=== PATIENT | female | born 1960 | race Caucasian/White ===

== ENCOUNTER 2021-12-11 18:29 | Inpatient (IN) | payer BC, SELFPAY ==
--- NOTE | 2021-12-11 18:43 | ECG_ITS ---
[facility] Test Date: 2021-12-11 Pat Name: Erica Greco Department: Room: 275 Gender: Female Applications Consultant: : 1960 Requested By: Danny Johns Order Number: [id number] Julius MD: Dean Lucas M.D. Measurements Intervals [place] Rate: 96 P: 44 MD: 129 QRS: 8 QRSD: 96 T: 46 QT: 358 QTc: 455 Interpretive Statements SINUS RHYTHM NONSPECIFIC T-WAVE ABNORMALITY No previous ECG available for comparison Electronically Signed On 12-12-2021 23:39:21 CDT by Dean Lucas M.D. [id number]
--- NOTE | 2021-12-11 18:55 | PC.NURSE ---
received into room 275 via ems from [facility] at 1825.pt is alert and awake and oriented x 4.denies pain.st on monitor.oriented to room environment.dr renae notified of arrival.
[2021-12-11 19:54] VITALS: BMI 30.5
[2021-12-11 20:00] VITALS: BP 109/61; PULSE 122; RESP 18; TEMP 38.2; O2SAT 95
[2021-12-11] MEDS: famotidine 20 mg/2 mL INJ IVP (20:12)
[2021-12-11] MEDS: sodium chloride 0.9% 1,000 ML 75 ML IV (20:12)
[2021-12-11] MEDS: acetaminophen 325 mg Tablet 650 MG PO (20:14)
--- NOTE | 2021-12-11 20:14 | USCV_ITS ---
Erica Greco Age: 61 Gender: F : 1960 Exam Date: 12/11/2021 22:08 Ordering Phys: Danny Johns MD Technologist: DHAVAL [place] [facility] [place]: c/o eval for CHF. History of reduced EF following chemo for multiple myeloma summer 2020. BP: 109 / 61 HR: 97 Rhythm: Sinus Technical Quality: Adequate MEASUREMENTS (Male / Female) Normal Values 2D ECHO LV Diastolic Diameter PLAX 4.1 cm 4.2 - 5.9 / 3.9 - 5.3 cm LV Systolic Diameter PLAX 2.8 cm IVS Diastolic Thickness 1.7 cm 0.6 - 1.0 / 0.6 - 0.9 cm IVS Systolic Thickness 1.9 cm LVPW Diastolic Thickness 1.4 cm 0.6 - 1.0 / 0.6 - 0.9 cm LVPW Systolic Thickness 1.8 cm LVOT Diameter 1.9 cm LV Ejection Fraction 2D Teich 61.0 % LV Ejection Fraction MOD 2C 54.5 % LV Ejection Fraction 2C AL 55.2 % LA Diameter 3.5 cm LA Width 3.3 cm LA Height 4.5 cm RA Width 2.9 cm RA Height 3.9 cm Aorta at Sinotubular Diameter 2.9 cm IVC Diameter 1.3 cm M-MODE Aortic Annulus Diameter 3.0 cm LA Ao Ratio MM 1.1 MV E Point Septal Separation 0.4 cm DOPPLER AV Peak Velocity 106.0 cm/s LVOT Peak Velocity 83.0 cm/s AV Area Cont Eq vti 2.1 cm squared AV Area Cont Eq pk 2.2 cm squared MV Peak Velocity 79.0 cm/s MV Area PHT 3.9 cm squared Mitral E to A Ratio 0.7 MV E' Velocity 29.5 cm/s Mitral E to MV E' Ratio 10.0 Mitral E to LV E' Lateral Ratio 7.5 Mitral E to LV E' Septal Ratio 14.9 TR Peak Velocity 236.2 cm/s TR Peak Gradient 22.3 mmHg TV Peak E Velocity 38.0 cm/s Right Atrial Pressure 5.0 mmHg Pulmonary Artery Systolic Pressu 27.3 mmHg PV Peak Velocity 84.0 cm/s FINDINGS Left Ventricle Normal LV size with borderline low ejection fraction 50 to 55%.mild left ventricular hypertrophy. Mild diffuse hypokinesia of the septum.Grade I/IV diastolic dysfunction (abnormal relaxation filling pattern), normal to mildly elevated filling pressures. Right Ventricle The right ventricle is normal in size and function. Right Atrium The right atrium is normal in size. Left Atrium The left atrium is normal in size. Mitral Valve Thickened mitral valve. Aortic Valve No gross abnormalities noted Tricuspid Valve Trace tricuspid valve regurgitation. Pulmonic Valve Trace pulmonary valve regurgitation. Pericardium No pericardial effusion. Aorta Normal aortic annulus size. IVC The inferior vena cava pulmonary and hepatic veins appear normal. CONCLUSIONS Normal LV size with borderline low ejection fraction 50 to 55%.mild left ventricular hypertrophy. Mild diffuse hypokinesia of the septum. Type I diastolic dysfunction. Thickened mitral valve. Trace of tricuspid and pulmonic valve regurgitation. There is no pericardial effusion. There are no intracardiac masses. No similar previous studies are available for comparison Dr Dean Lucas MD [facility] (Electronically Signed) Final Date: 12 December 2021 07:58 S
[2021-12-11 20:27] LABS: Hematocrit 33.8 % (37.0-47.0); Hemoglobin 11.3 g/dL (11.5-15.3); Mean Corpuscular HGB Conc 33.4 g/dL (30.0-36.0); Mean Corpuscular Hemoglobin 32.1 pg (28.0-34.0); Mean Platelet Volume 12.2 fL (7.4-10.4); Red Blood Count 3.52 10^6/uL (4.1-5.3); Red Cell Distribution Width 14.1 % (12.1-15.1)
[2021-12-11 20:33] LABS: White Blood Count 0.9 10^3/uL (4.0-10.0)
[2021-12-11 20:34] LABS: Platelet Count 27 10^3/cmm (130-400); Slide Review Slide Review Perform
[2021-12-11 20:46] LABS: Lactic Sepsis W/Reflex 1.1 mmol/L (0.5-2.2)
[2021-12-11 20:55] LABS: NT Pro B Type Natriuretic Pept 242 pg/mL (0-125); Procalcitonin 2.59 ng/mL (0-0.5)
[2021-12-11 20:57] LABS: Glucose Point of Care 272 mg/dL (70-110)
[2021-12-11 20:58] LABS: Magnesium 1.8 mg/dL (1.7-2.3); Thyroid Stimulating Hormone 0.93 uIU/mL (0.27-4.20)
[2021-12-11 21:03] LABS: Absolute Segmented Neutrophil 0.7 10/cmm (1.6-7.1); Eosinophils 2 %; Lymphocytes 6 %; Lymphocytes Absolute 0.2 10^3/cmm (1.2-3.4); Platelet Estimate Decreased (Normal); Segmented Neutrophils 73 %; Total Cells Counted 100 (0-100)
[2021-12-11 21:05] LABS: Absolute Neutrophil 0.7 10^3/cmm (1.4-6.5)
[2021-12-11 21:06] LABS: Alanine Aminotransferase 44 U/L (0-33); Albumin Level 3.6 g/dL (3.5-5.2); Alkaline Phosphatase 54 IU/L (35-105); Anion Gap 19.3 (5-19); Aspartate Amino Transferase 21 U/L (0-32); Blood Urea Nitrogen 17 mg/dL (8-23); Calcium 8.3 mg/dL (8.5-10.5); Carbon Dioxide 19 mmol/L (22-29); Chloride 95 mmol/L (98-107); Globulin 2.7 g/dL (1.3-4.6); Glomerular Filtration Rate 63.4 mL/min (90-130); Glucose 220 mg/dL (65-115); Iron 26 ug/dL (37-145); Osmolality Calculated 278 mOsm/kg (285-295); Percent Saturation 13.9 % (20-50); Potassium 3.3 mmol/L (3.5-5.1); Sodium 130 mmol/L (136-145); Total Bilirubin 0.5 mg/dL (0.15-1.2); Total Iron Binding Capacity 186 mcg/dl; Total Protein 6.3 g/dL (6.6-8.7); Unsaturated Iron Binding 160 ug/dL (112-347)
[2021-12-11 21:22] VITALS: O2SAT 97
[2021-12-11 21:23] VITALS: PULSE 118; O2SAT 97
[2021-12-11 21:25] LABS: Folate Level > 20.0 ng/mL (4.8-37.3)
[2021-12-11] MEDS: insulin lispro 100 unit/1 mL SUBCUT (21:32)
[2021-12-11] MEDS: metoprolol tartrate 50 mg Tablet PO (21:32)
[2021-12-11] MEDS: gabapentin 100 mg Capsule PO (21:33)
[2021-12-11] MEDS: allopurinol 100 mg Tablet PO (21:33)
[2021-12-11 21:49] LABS: Add Urine Microscopic? NO; Charge for UA Resulting for Rev
[2021-12-11 22:07] LABS: Bilirubin Urine Neg (Negative); Blood Urine Neg (Negative); Glucose Urine UA 4+ (Normal); Ketones Urine 1+ (Negative); Leukocyte Esterase Urine Negative (Negative); Nitrate Urine Negative (Negative); Protein Urine Neg (Negative); Specific Gravity, Urine 1.015 (1.005-1.030); Urine Appearance Clear (CLEAR); Urine Color Yellow (Yellow); Urobilinogen Urine Norm (Negative); pH Urine 5 (5-7)
[2021-12-11 22:10] VITALS: PULSE 110
[2021-12-11 22:15] LABS: SARS Covid-2 Antigen Negative (Negative)
[2021-12-12] VITALS (13 sets, daily range): BP systolic 76–100; BP diastolic 46–71; PULSE 80–124; RESP 16–18; TEMP 36.4–39.1; O2SAT 92–98
[2021-12-12] MEDS: piperacillin-tazobactam 3.375 GM in sodium chloride 0.9% (plus) 50 ML IV ×3 (00:21→17:46)
[2021-12-12] MEDS: cyclobenzaprine 10 mg Tablet PO ×2 (00:21→20:08)
--- NOTE | 2021-12-12 01:41 | XRR_ITS ---
PROCEDURE INFORMATION: Exam: XR Chest Exam date and time: 12/12/2021 2:21 AM Age: 61 years old Clinical indication: Fever; Additional info: Fever and neutropenia, evalute for pneumonia TECHNIQUE: Imaging protocol: Radiologic exam of the chest. Views: 1 view. COMPARISON: No relevant prior studies available. FINDINGS: Tubes, catheters and devices: Right subclavian Port-A-Cath is seen with tip overlying the cavoatrial junction. Lungs: There are normal lung volumes without interstitial or airspace opacities. Pleural spaces: There are no pleural effusions or pneumothorax. Heart/Mediastinum: The heart size is normal. The pulmonary vasculature is normal. There is a mildly tortuous thoracic aorta. The trachea is in the midline. Bones/joints: Medium-sized degenerative osteophytes and moderate degenerative disc disease changes are seen in the mid to lower thoracic spine. Mild bilateral shoulder degenerative changes are seen. There is generalized osteopenia. Soft tissues: Multiple external densities are seen overlying the chest, limiting assessment. XR/XR chest 1V portable [id number] IMPRESSION: No AP view chest radiographic evidence of acute cardiopulmonary disease.
--- NOTE | 2021-12-12 01:44 | PM.HP ---
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 daily for 21 days) + Darzalex faspro (daratumumab and hyaluronidase) once a month with last dose 1 week ago presented to [facility] with complaints of fever. Patient reports she has been having fever on and off for the past week ranging up to 101 Fahrenheit at home. She denies any cough dyspnea chest pain palpitations or sputum production. She reports mild pain in the right lower quadrant which is new over the past week. Also has 3-4 episodes of diarrhea which appears to be more chronic and per patient appears related to magnesium supplements. No nausea or diarrhea. No blood in stools. Denies any complains of dysuria. No rashes anywhere on body. No recent sick contacts. Past medical history is notable for multiple myeloma, congestive heart failure, cardiomyopathy which was precipitated by induction chemotherapy 1 year ago. At the time of initial diagnosis her EF was 30%, she has remained on Entresto for about a year, most recent EF was 50% per verbal report. 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 Denies any joint pain or arthralgias at this time. No odynophagia sore throat or URI symptoms. Labs today are notable for neutropenia, thrombocytopenia, and electrolyte disturbances. Patient denies any past history of febrile neutropenia. She normally does not need to take Neupogen after her chemo. She is on Eliquis 2.5 mg twice daily which has recently been discontinued. Review of Systems General: Reports: 10 or more systems reviewed and unremarkable except in HPI and below Const: Denies: fever(s), chills or body aches Eyes: Denies: change in vision, blurry vision or photophobia ENMT: Reports: hoarseness; Denies: throat pain, enlarged tonsils, odynophagia or nasal congestion Card: Denies: chest pain, palpitations, irregular heart rhythm, edema, swelling of feet/ankles, lightheadedness, pre-syncope, dyspnea on exertion or orthopnea Resp: Denies: dyspnea, productive cough, non-productive cough, wheezing, stridor, pain on inspiration, change in phlegm color, hemoptysis or chest congestion GI: Denies: abdominal pain, nausea, vomiting, hematemesis, coffee ground emesis, dysphagia, heartburn, diarrhea, constipation, GI cramping, change in stool character, hematochezia or melena : Denies: flank pain, difficulty voiding, dysuria, urinary frequency, urinary urgency, urinary hesitancy or hematuria Musc: Denies: neck pain, back pain, extremity pain, joint swelling, joint warmth or deformity Neuro: Denies: headache(s), numbness in extremities, weakness in extremities, sensory changes, difficulty walking, frequent falls, dizziness, vertigo, behavioral changes, Slurred speech present or seizure-like activity Psych: Denies: anxiety, depression, suicidal ideation or homicidal ideation Endo: Denies: polyuria, polydipsia, tired all the time, cold intolerance or hot flashes Mario/Lymph: Denies: easy bruising or easy bleeding Medications/Allergies Home Medications Medication Instructions Recorded Confirmed Last Taken Type acyclovir 400 mg tablet 400 mg PO BID 12/11/21 12/11/21 12/11/21 08:00 History allopurinol 100 mg tablet 100 mg PO BEDTIME 12/11/21 12/11/21 12/10/21 21:00 History coQ10 (ubiquinol) 100 mg capsule 100 mg PO DAILY 12/11/21 12/11/21 Unknown History cyclobenzaprine 10 mg tablet 30 mg PO BEDTIME 12/11/21 12/11/21 12/10/21 21:00 History dapagliflozin 10 mg tablet 10 mg PO QAM 12/11/21 12/11/21 12/11/21 08:00 History dulaglutide 0.75 mg/0.5 mL See Rx Instructions .ROUTE .COMPLEX 12/11/21 12/11/21 12/07/21 08:00 History subcutaneous pen injector (Trulicity) gabapentin 100 mg capsule 100 mg PO BEDTIME 12/11/21 12/11/21 12/10/21 21:00 History hydrocodone 5 mg-acetaminophen 325 1 tab PO PRN PRN 12/11/21 12/11/21 Unknown History mg tablet metformin 750 mg tablet,extended 750 mg PO BID 12/11/21 12/11/21 12/11/21 08:00 History release 24 hr metoprolol tartrate 50 mg tablet 50 mg PO BEDTIME 12/11/21 12/11/21 12/10/21 21:00 History sacubitril 97 mg-valsartan 103 mg 1 tab PO BID 12/11/21 12/11/21 12/11/21 08:00 History tablet (Entresto) Allergies Allergy/AdvReac Type Severity Reaction Status Date / Time influenza virus vaccine qs Allergy ALGY-Wheezi Verified 12/11/21 19:56 2020- (6 mos and up) ng [From Fluarix Quad 2754-3786 (PF)] metformin [From Janumet] Allergy ADR-Gastrointestinal Verified 12/11/21 19:56 Upset sitagliptin [From Janumet] Allergy ADR-Gastrointestinal Verified 12/11/21 19:56 Upset PFSH Acute PFSH: Medical History (Updated 12/12/21 @ 02:20 by Ekta Mccloud MD) HTN (hypertension) Multiple myeloma Type 2 diabetes mellitus Surgical History (Updated 12/12/21 @ 02:17 by Ekta Mccloud MD) History of auto stem cell transplant Vitals/I&O/Wt Last Vital Signs Temp 99.1 F 12/12/21 00:00 Pulse 88 12/12/21 00:00 Resp 17 12/12/21 00:00 BP 85/53 12/12/21 00:00 Pulse Ox 96 12/12/21 00:00 12/11/21 12/11/21 12/12/21 14:59 22:59 06:59 Intake Total 240 / 240 250 / 490 Output Total 200 / 200 Balance 40 / 40 250 / 290 Weight last 48 hrs Weight 80.785 kg Physical Exam Narrative: GEN: Awake, alert and oriented, no acute distress CVS: S1S2 N RS: CTA B/L all areas Abd: Soft, nt/nd , bs+ FAMILY LITERACY COORDINATOR: no focal neuro deficits EXT: no rash, clubbing or cyanosis Data : 12/11/21 20:00 12/11/21 20:00 Micro: Microbiology 12/11/21 21:40 Legionella Urinary Antigen - Final Urine,Voided 12/11/21 20:12 Blood Culture - Preliminary Blood SPECIMEN COLLECTED 12/11/21 20:00 Blood Culture - Preliminary Blood SPECIMEN COLLECTED A&P Assessment and plan (1) Neutropenic fever: Presenting today with fever and neutropenia, source under evaluation. Patient denies any respiratory symptoms at this present time. She does report a right lower quadrant pain along with 4-[address] episodes of diarrhea[address] Check CT of the abdomen pelvis to evaluate for typhlitis Empiric antibiotic treatment with piperacillin tazobactam and vancomycin Check chest x-ray, UA, blood culture, tick panel, COVID PCR. Mildly elevated AST, check hepatitis serology Continue acyclovir prophylaxis. Gentle IVF hydration with NS @ 75cc/hr Status: Acute (2) Pancytopenia: likely as result of recent daratumumab therapy. Monitor for now, will likely need neupogen if persistently neutropenic Reverse isolation precautions recently taken off eliquis due to thrombocytopenia. 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
[2021-12-12 02:59] LABS: Basophils % 1.1 %; Eosinophils % 2.2 %; Hematocrit 29.1 % (37.0-47.0); Hemoglobin 10.2 g/dL (11.5-15.3); Lymphocytes # 0.1 10^3/uL (0.8-4.8); Lymphocytes % 14.3 %; Mean Corpuscular HGB Conc 35.1 g/dL (30.0-36.0); Mean Corpuscular Hemoglobin 32.6 pg (28.0-34.0); Monocytes # 0.1 10^3/uL (0.2-0.9); Monocytes % 14.3 %; Neutrophils % 68.1 %; Nucleated Red Blood Cells % 0 %; Red Blood Count 3.13 10^6/uL (4.1-5.3)
[2021-12-12 03:22] LABS: Alanine Aminotransferase 37 U/L (0-33); Albumin Level 3.2 g/dL (3.5-5.2); Alkaline Phosphatase 47 IU/L (35-105); Anion Gap 13.2 (5-19); Aspartate Amino Transferase 17 U/L (0-32); Blood Urea Nitrogen 22 mg/dL (8-23); Calcium 8.1 mg/dL (8.5-10.5); Carbon Dioxide 23 mmol/L (22-29); Chloride 103 mmol/L (98-107); Chol HDL Ratio 6.33 mg/dL (0.0-4.40); Cholesterol 133 mg/dL (0-200); Globulin 2.7 g/dL (1.3-4.6); Glomerular Filtration Rate 56.2 mL/min (90-130); Glucose 120 mg/dL (65-115); HDL Cholesterol 21 mg/dL (60-100); LDL Cholesterol Calculated 47 mg/dL (50-129); Osmolality Calculated 287 mOsm/kg (285-295); Phosphorus 3.3 mg/dL (2.5-4.5); Potassium 3.2 mmol/L (3.5-5.1); Sodium 136 mmol/L (136-145); Total Bilirubin 0.4 mg/dL (0.15-1.2); Total Protein 5.9 g/dL (6.6-8.7); Triglycerides 324 mg/dL (0-150); VLDL Cholestrol Calculation 65 mg/dL (0-30)
[2021-12-12 03:34] LABS: Neutrophils # 0.62 10^3/uL (1.8-7.7); Platelet Count 27 10^3/cmm (130-400); Slide Review Slide Review Perform; White Blood Count 0.9 10^3/uL (4.0-10.0)
[2021-12-12 03:36] LABS: Estmated Average Glucose 137; Hemoglobin A1C 6.4 % (4.0-6.0)
[2021-12-12 04:15] LABS: Hepatitis A Antibody IgM Non-Reactive (Nonreactive); Hepatitis B Surface AB 418.6 (11.5-1000); Hepatitis B Surface Antigen Non-Reactive (Nonreactive); Hepatitis C Virus Antibody Non-Reactive (Nonreactive)
[2021-12-12 05:00] LABS: Hepatitis B Core AB, Total Equivocal (Nonreactive)
[2021-12-12] MEDS: famotidine 20 mg/2 mL INJ IVP ×2 (05:23→17:48)
[2021-12-12 07:48] LABS: Glucose Point of Care 123 mg/dL (70-110)
--- NOTE | 2021-12-12 07:52 | CT_ITS ---
WS: [id number] CT CHEST, ABDOMEN, AND PELVIS TECHNIQUE: Contrast-enhanced CT of the chest, abdomen, and pelvis with coronal and sagittal reformatt ed images. CLINICAL INFORMATION: neutropenic fever, mm COMPARISON: None. DLP: 1579.[address] scans at [facility] use at least one of these dose optimization techniques: automated e xposure control; mA and/or kV adjustment per patient size (includes targeted exams where dose is matc hed to clinical indication); or iterative reconstruction. CT CHEST: Both lungs are well aerated. No acute pulmonary infiltrates. No focal pneumonia or pleural fluid. No suspicious pulmonary parenchymal opacities. Normal caliber thoracic aorta. Coronary calcification. No mediastinal or hilar lymphadenopathy. No ax illary lymphadenopathy. Moderate thoracic kyphosis with chronic compression fractures in the mid thor acic spine one with vertebroplasty changes. Anterior wedging with hypertrophic changes. Ankylosis in the mid and lower thoracic spine. CT ABDOMEN AND PELVIS: Mild diffuse fatty infiltration of the liver. Mild hepatomegaly. Enlarged RIGHT hepatic lobe. Mild sp lenomegaly. Normal GE junction. Normal portal vein and splenic vein. Normal pancreatic parenchymal en hancement. Normal caliber upper abdominal aorta. Celiac and SMA are patent. Adrenal glands are normal . Normal renal parenchymal enhancement. No hydronephrosis. Bilateral renal cysts. No para-aortic lymphadenopathy. Heterogeneous lobulated fibroid uterus. Uterus appears retroverted an d retroflexed. Heterogeneous presumed fibroid measures 4.8 x 4.1 cm in the fundus. This can be follow ed up with ultrasound. This results in mass effect on the adjacent sigmoid colon. Otherwise normal si gmoid colon. No evidence of high-grade small or large bowel obstruction. Fat-containing tiny umbilical hernia. Evidence of prior periumbilical hernia repair. No herniated bow el. Extensive hypertrophic changes lumbar spine. Innumerable tiny lytic lesions throughout the visualized bony structures compatible with history of multiple myeloma more prominent in the pelvis and sacrum. . CT/CT chest abd pel w con* IMPRESSION: 1. No evidence of drainable abscess or fluid collection to account for neutrop enic fever. 2. Lungs are well aerated. No acute pulmonary infiltrates. 3. No focal pneumonia or pleural fluid. 4. Mild hepatomegaly and splenomegaly. Diffuse fatty filtration liver. 5. Previous umbilical and RIGHT periumbilical hernia repair. Incidental tiny f at containing hernias but no herniated bowel. 6. Retroverted and retroflexed uterus with heterogeneous enhancing fundal mass presumably fibroid measuring 4.8 x 4.1 cm. This impinges the adjacent sigmoid colon. This can be further evaluated with ultrasound. 7. Multiple innumerable tiny lytic lesions throughout the visualized bony stru ctures more prominent in the bony pelvis and sacrum extending into the proximal femurs and femoral heads compatible with history of multiple myeloma. 8. Thoracic kyphosis with chronic compression fractures T5 and T6 with vertebr a plana configuration at T5 and prior vertebroplasty changes at T6.
[2021-12-12] MEDS: acyclovir 400 mg Tablet PO ×2 (09:24→17:47)
[2021-12-12] MEDS: sodium chloride 0.9% 1,000 ML 75 ML IV ×2 (10:10→23:24)
[2021-12-12 11:53] LABS: Glucose Point of Care 154 mg/dL (70-110)
[2021-12-12] MEDS: insulin lispro 100 unit/1 mL SUBCUT ×2 (12:31→20:58)
[2021-12-12] MEDS: iohexol 350 mg/mL 100 mL Btl IV (12:32)
--- NOTE | 2021-12-12 13:53 | P.PN_ITS ---
Subjective Subjective: No acute events overnight. Today morning on examination patient sitting up in chair. Denies any nausea, vomiting, headache. Complaining of slight pain in his right lower abdomen. Denies of having any dysuria. Complaining of diarrhea but he states is most likely secondary to lactulose which she was prescribed few weeks ago. She states she continues to have loose bowel movements. T-max since admission 100.8 Fahrenheit. Vitals/I&O/Wt Last Vital Signs Temp 100.7 F H 12/12/21 11:27 Pulse 112 H 12/12/21 11:27 Resp 17 12/12/21 11:27 BP 85/50 12/12/21 11:27 Pulse Ox 96 12/12/21 11:27 12/11/21 12/12/21 12/12/21 22:59 06:59 14:59 Intake Total 240 / 240 540 / 780 1480 / 1480 Output Total 200 / 200 360 / 560 300 / 300 Balance 40 / 40 180 / 220 1180 / 1180 Weight last 48 hrs Weight 80.785 kg Physical Exam Narrative: General: No acute distress, AO x3 HEENT: PERRLA, pupils bilaterally equal and reactive Chest: Normal vesicular breath sounds, no added sounds, equal good air entry bilaterally CVS: S1-S2 regular, no murmurs, no tachycardia, no gallops, no rubs Abdomen: Soft, mild tenderness in right lower quadrant , no organomegaly, bowel sounds present Neuro: No focal deficits, no facial deformity, AO x3, power 5/5 in all limbs Data : 12/12/21 02:21 12/12/21 02:21 Micro: Microbiology 12/11/21 18:18 Bacterial Antigens - Final Urine Kidney 12/11/21 21:40 Legionella Urinary Antigen - Final Urine,Voided 12/11/21 20:12 Blood Culture - Preliminary Blood SPECIMEN COLLECTED 12/11/21 20:00 Blood Culture - Preliminary Blood SPECIMEN COLLECTED A&P Assessment and plan (1) Sepsis: Present on admission. Ruled in by tachycardia, fever, leukopenia and low blood pressures. Target organ damage?cardiac. Keep mean artery pressure over 65. Normal saline at 75 cc/h. Status: Acute Qualifiers: Sepsis type: sepsis due to unspecified organism Sepsis acute organ dysfunction status: with acute organ dysfunction Severe sepsis acute organ dysfunction type: unspecified Severe sepsis shock status: without septic shock Qualified Code(s): A41.9 - Sepsis, unspecified organism; R65.20 - Severe sepsis without septic shock (2) Neutropenic fever: Most likely secondary to chemotherapy for multiple myeloma. Continue with vancomycin and Zosyn. Will dose antibiotics as per creatinine clearance. Follow-up blood culture, tick panel, COVID-19 PCR, urine culture, respiratory viral panel Will de-escalate antibiotics as per culture results. If MRSA negative can discontinue vancomycin. For now we will continue antibiotics for at least 72 hours till blood cultures were monitored. Continue with IV hydration with normal saline at 75 cc/h. Awaiting CT chest abdomen pelvis with contrast. Check stool studies. Continuing home dose of acyclovir at 40 mg twice daily. Status: Acute (3) Pancytopenia: likely as result of recent daratumumab therapy. Patient will most likely need Neupogen. Will confirm with her outpatient oncologist. Continue to monitor ANC daily for now. If persists will consult ID. Recently taken off eliquis due to thrombocytopenia. Status: Acute (4) Cardiomyopathy: No signs of decompensation. Echocardiogram shows an EF of 55 to 60%, grade 1 diastolic dysfunction, diffuse hypokinesia of septum. Strict input output charting. Status: Acute (5) Type 2 diabetes mellitus: Insulin sliding scale at moderate dose protocol. Check A1c. Patient is requesting regular diet rather than carb consistent. Status: Acute (6) Multiple myeloma: Follows up with oncology team at [facility]. Post auto stem transplant 1 year ago. Currently on chemotherapy with Revlimid daily for 21 days, Darzalex Faspro once a month with last dose 1 week ago. Status: Acute Plan Hypotension: Most likely secondary to possible sepsis. Hold off on Entresto. Decrease dose of metoprolol to 25 mg at bedtime. Keep mean artery pressure over 65 and less than 90 mmHg. Analgesia: Tylenol as needed Glycemic control: Moderate protocol insulin sliding scale Nutrition: Regular diet CODE STATUS: Full code PUD prophylaxis: Protonix DVT prophylaxis: SCDs, hold off on medical prophylaxis given thrombocytopenia Discharge planning: Discharge back home once patient is medically stable wound cultures remain negative for at least 72 hours. Continue care at [facility] with reverse isolation in place. Attestations Medical Necessity Statement*: Patient for management of severe pancytopenia, thrombocytopenia, neutropenic fever. Time Spent in Patient Care: Greater than 35 minutes Coding Level of Care Code Acute Artist Scientific for [facility] Fwd Diagnoses Neutropenic fever D70.9; R50.81 Pancytopenia D61.818 Cardiomyopathy I42.9 Type 2 diabetes mellitus E11.9 Multiple myeloma C90.00 Sepsis A41.9; R65.20 Sepsis type: sepsis due to unspecified organism Sepsis acute organ dysfunction status: with acute organ dysfunction Severe sepsis acute organ dysfunction type: unspecified Severe sepsis shock status: without septic shock
[2021-12-12] MEDS: acetaminophen 325 mg Tablet 650 MG PO (15:38)
[2021-12-12] MEDS: acetaminophen 1,000 MG/100 ML PIGGYBACK 400 MG IV (16:54)
[2021-12-12 17:05] LABS: Glucose Point of Care 118 mg/dL (70-110)
[2021-12-12] MEDS: allopurinol 100 mg Tablet PO (20:07)
[2021-12-12] MEDS: metoprolol tartrate 50 mg Tablet 25 MG PO (20:07)
[2021-12-12] MEDS: gabapentin 100 mg Capsule PO (20:07)
--- NOTE | 2021-12-12 20:24 | PC.NURSE ---
Patient moved to 261 with telemetry. Report given to MELVIN Gil.
[2021-12-12 21:06] LABS: Glucose Point of Care 191 mg/dL (70-110)
[2021-12-13] VITALS (10 sets, daily range): BP systolic 88–103; BP diastolic 52–66; PULSE 76–109; RESP 16–20; TEMP 36.6–37.4; O2SAT 91–98
[2021-12-13] MEDS: piperacillin-tazobactam 3.375 GM in sodium chloride 0.9% (plus) 50 ML IV ×3 (00:53→17:52)
[2021-12-13 05:05] LABS: Eosinophils % 3.1 %; Hematocrit 28.3 % (37.0-47.0); Hemoglobin 9.6 g/dL (11.5-15.3); Lymphocytes # 0.1 10^3/uL (0.8-4.8); Lymphocytes % 12.3 %; Mean Corpuscular HGB Conc 33.9 g/dL (30.0-36.0); Mean Corpuscular Hemoglobin 31.9 pg (28.0-34.0); Mean Platelet Volume 12.1 fL (7.4-10.4); Monocytes # 0.1 10^3/uL (0.2-0.9); Monocytes % 16.9 %; Neutrophils % 66.2 %; Nucleated Red Blood Cells % 0 %; Platelet Count 30 10^3/cmm (130-400); Positive M 1; Red Blood Count 3.01 10^6/uL (4.1-5.3); Red Cell Distribution Width 14.2 % (12.1-15.1)
[2021-12-13 05:19] LABS: Neutrophils # 0.43 10^3/uL (1.8-7.7); White Blood Count 0.7 10^3/uL (4.0-10.0)
[2021-12-13 05:32] LABS: Alanine Aminotransferase 36 U/L (0-33); Albumin Level 3.2 g/dL (3.5-5.2); Alkaline Phosphatase 60 IU/L (35-105); Anion Gap 12.9 (5-19); Aspartate Amino Transferase 27 U/L (0-32); Blood Urea Nitrogen 14 mg/dL (8-23); Calcium 7.4 mg/dL (8.5-10.5); Carbon Dioxide 22 mmol/L (22-29); Chloride 107 mmol/L (98-107); Globulin 2.6 g/dL (1.3-4.6); Glomerular Filtration Rate 63.4 mL/min (90-130); Glucose 115 mg/dL (65-115); Osmolality Calculated 287 mOsm/kg (285-295); Potassium 3.9 mmol/L (3.5-5.1); Sodium 138 mmol/L (136-145); Total Bilirubin 0.4 mg/dL (0.15-1.2); Total Protein 5.8 g/dL (6.6-8.7)
[2021-12-13] MEDS: famotidine 20 mg/2 mL INJ IVP ×2 (06:28→17:53)
[2021-12-13 06:34] LABS: Glucose Point of Care 120 mg/dL (70-110)
[2021-12-13] MEDS: acyclovir 400 mg Tablet PO ×2 (08:54→17:53)
[2021-12-13 12:15] LABS: Glucose Point of Care 149 mg/dL (70-110)
[2021-12-13] MEDS: insulin lispro 100 unit/1 mL SUBCUT ×2 (12:19→21:09)
--- NOTE | 2021-12-13 12:53 | PM.PN ---
Subjective Subjective: No events overnight. Patient continues to deny of having any symptoms. Denies any nausea, vomiting, headache. T-max last 24 hours 102.8 Fahrenheit. Blood pressures continue to remain soft though patient is asymptomatic. Heart rate better. Tried calling her outpatient oncologist yesterday but could not get in touch and left a voicemail. Information given to patient as well. Vitals/I&O/Wt Last Vital Signs Temp 98.5 F 12/13/21 08:00 Pulse 90 12/13/21 09:24 Resp 16 12/13/21 09:24 BP 88/56 12/13/21 08:00 Pulse Ox 93 12/13/21 09:24 12/12/21 12/13/21 12/13/21 22:59 06:59 14:59 Intake Total 850 / 2380 1492.5 / 3872.5 360 / 360 Output Total 400 / 700 600 / 1300 200 / 200 Balance 450 / 1680 892.5 / 2572.5 160 / 160 Weight last 48 hrs Weight 85.411 kg Weight 81.148 kg Weight 80.785 kg Physical Exam Narrative: General: No acute distress, AO x3 HEENT: PERRLA, pupils bilaterally equal and reactive Chest: Normal vesicular breath sounds, no added sounds, equal good air entry bilaterally CVS: S1-S2 regular, no murmurs, no tachycardia, no gallops, no rubs Abdomen: Soft, mild tenderness in right lower quadrant , no organomegaly, bowel sounds present Neuro: No focal deficits, no facial deformity, AO x3, power 5/5 in all limbs Data : 12/13/21 04:44 12/13/21 04:44 Micro: Microbiology 12/11/21 20:12 Blood Culture - Preliminary Blood NEGATIVE TO DATE 12/11/21 20:00 Blood Culture - Preliminary Blood NEGATIVE TO DATE 12/11/21 21:40 MRSA Culture - Final Nose 12/11/21 18:18 Bacterial Antigens - Final Urine Kidney A&P Assessment and plan (1) Sepsis: Present on admission. Ruled in by tachycardia, fever, leukopenia and low blood pressures. Target organ damage?cardiac. Keep mean artery pressure over 65. Normal saline at 75 cc/h. Status: Acute Qualifiers: Sepsis type: sepsis due to unspecified organism Sepsis acute organ dysfunction status: with acute organ dysfunction Severe sepsis acute organ dysfunction type: unspecified Severe sepsis shock status: without septic shock Qualified Code(s): A41.9 - Sepsis, unspecified organism; R65.20 - Severe sepsis without septic shock (2) Neutropenic fever: Most likely secondary to chemotherapy for multiple myeloma. Continue with Zosyn. MRSA negative will discontinue vancomycin. Follow-up blood culture, tick panel, COVID-19 PCR, urine culture, respiratory viral panel. Stool studies sent results awaited. For now we will continue antibiotics for at least 72 hours till blood cultures were monitored or for at least 24 hours of fever free period. Continue with IV hydration with normal saline at 75 cc/h. CT chest and pelvis results appreciated. Case discussed with Dr. Cook from oncology. We will go ahead and give 40 mcg of Neupogen one-time. Patient is agreeable. Continuing home dose of acyclovir at 400 mg twice daily. Patient continues to spike fever will consult ID. Status: Acute (3) Pancytopenia: likely as result of recent daratumumab therapy. Patient will most likely need Neupogen. Will confirm with her outpatient oncologist. Continue to monitor ANC daily for now. If persists will consult ID. Recently taken off eliquis due to thrombocytopenia. Status: Acute (4) Cardiomyopathy: No signs of decompensation. Echocardiogram shows an EF of 55 to 60%, grade 1 diastolic dysfunction, diffuse hypokinesia of septum. Strict input output charting. Status: Acute (5) Type 2 diabetes mellitus: Insulin sliding scale at moderate dose protocol. HbA1c 6.4 Patient is requesting regular diet rather than carb consistent. Status: Acute (6) Multiple myeloma: Follows up with oncology team at [facility]. 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 Currently on chemotherapy with Revlimid daily for 21 days, Darzalex Faspro once a month with last dose 1 week ago. Status: Acute Plan Hypotension: Most likely secondary to possible sepsis. Hold off on Entresto. Decrease dose of metoprolol to 25 mg at bedtime. Keep mean artery pressure over 65 and less than 90 mmHg. Analgesia: Tylenol as needed Glycemic control: Moderate protocol insulin sliding scale Nutrition: Regular diet CODE STATUS: Full code PUD prophylaxis: Protonix DVT prophylaxis: SCDs, hold off on medical prophylaxis given thrombocytopenia Discharge planning: Discharge back home once patient is medically stable wound cultures remain negative for at least 72 hours. Continue care at [facility] with reverse isolation in place. 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
[2021-12-13] MEDS: ibuprofen 200 mg Tablet 400 MG PO (13:58)
[2021-12-13] MEDS: loratadine 10 mg Tablet PO (13:58)
[2021-12-13] MEDS: sodium chloride 0.9% 1,000 ML 75 ML IV (14:00)
[2021-12-13 15:05] LABS: Lyme AB Screen <0.90 index
[2021-12-13 20:53] LABS: Glucose Point of Care 148 mg/dL (70-110)
[2021-12-13] MEDS: cyclobenzaprine 10 mg Tablet PO (21:09)
[2021-12-13] MEDS: allopurinol 100 mg Tablet PO (21:10)
[2021-12-13] MEDS: gabapentin 100 mg Capsule PO (21:10)
[2021-12-13] MEDS: metoprolol tartrate 25 mg Tablet 12.5 MG PO (21:10)
[2021-12-14] VITALS (12 sets, daily range): BP systolic 94–127; BP diastolic 55–73; PULSE 80–110; RESP 15–18; TEMP 36.4–38.1; O2SAT 95–99
[2021-12-14] MEDS: piperacillin-tazobactam 3.375 GM in sodium chloride 0.9% (plus) 50 ML IV ×3 (01:22→17:08)
[2021-12-14] MEDS: sodium chloride 0.9% 1,000 ML 75 ML IV ×2 (01:22→15:03)
[2021-12-14 05:23] LABS: Basophils % 0.7 %; Eosinophils % 1.5 %; Hematocrit 25.5 % (37.0-47.0); Hemoglobin 8.7 g/dL (11.5-15.3); Lymphocytes # 0.1 10^3/uL (0.8-4.8); Lymphocytes % 7.5 %; Mean Corpuscular HGB Conc 34.1 g/dL (30.0-36.0); Mean Corpuscular Hemoglobin 31.8 pg (28.0-34.0); Mean Corpuscular Volume 93.1 fl (81-99); Mean Platelet Volume 13.6 fL (7.4-10.4); Monocytes # 0.1 10^3/uL (0.2-0.9); Monocytes % 6.7 %; Neutrophils # 1.11 10^3/uL (1.8-7.7); Neutrophils % 82.9 %; Nucleated Red Blood Cells % 0 %; Platelet Count 29 10^3/cmm (130-400); Red Blood Count 2.74 10^6/uL (4.1-5.3); White Blood Count 1.3 10^3/uL (4.0-10.0)
[2021-12-14 05:28] LABS: Alanine Aminotransferase 42 U/L (0-33); Albumin Level 2.8 g/dL (3.5-5.2); Alkaline Phosphatase 74 IU/L (35-105); Anion Gap 12.7 (5-19); Aspartate Amino Transferase 35 U/L (0-32); Blood Urea Nitrogen 11 mg/dL (8-23); Calcium 7.3 mg/dL (8.5-10.5); Carbon Dioxide 21 mmol/L (22-29); Chloride 111 mmol/L (98-107); Globulin 2.1 g/dL (1.3-4.6); Glomerular Filtration Rate 72.7 mL/min (90-130); Glucose 115 mg/dL (65-115); Osmolality Calculated 292 mOsm/kg (285-295); Potassium 3.7 mmol/L (3.5-5.1); Sodium 141 mmol/L (136-145); Total Bilirubin 0.3 mg/dL (0.15-1.2); Total Protein 4.9 g/dL (6.6-8.7)
[2021-12-14 06:01] LABS: Slide Review Slide Review Perform
[2021-12-14] MEDS: acyclovir 400 mg Tablet PO ×2 (08:19→17:09)
[2021-12-14] MEDS: famotidine 20 mg/2 mL INJ IVP ×2 (08:19→17:45)
[2021-12-14 08:37] LABS: Glucose Point of Care 104 mg/dL (70-110)
[2021-12-14 10:56] LABS: Glucose Point of Care 126 mg/dL (70-110)
--- NOTE | 2021-12-14 11:23 | P.DS_ITS ---
Discharge Providers Date of Admission: 12/11/21 18:29 Date of Discharge: December 14, 2021 Attending Provider at Admission: Danny Johns MD Attending Provider at Discharge: Danny Johns MD Primary Care Provider: Lilia Childers, Diagnoses at Discharge Discharge Diagnosis (1) Sepsis: Status: Acute Qualifiers: Sepsis type: sepsis due to unspecified organism Sepsis acute organ dysfunction status: with acute organ dysfunction Severe sepsis acute organ dysfunction type: unspecified Severe sepsis shock status: without septic shock Qualified Code(s): A41.9 - Sepsis, unspecified organism; R65.20 - Severe sepsis without septic shock (2) Neutropenic fever: Status: Acute (3) Pancytopenia: Status: Acute (4) Cardiomyopathy: Status: Acute (5) Type 2 diabetes mellitus: Status: Acute (6) Multiple myeloma: Status: Acute Reason for Visit Reason for Visit: Neutropenia Hospital Course Hospital Course Erica Greco is a 61 year old female with multiple myeloma status post auto stem cell transplant 1 year ago, currently on chemotherapy with Revlimid (takes p.o. daily for 21 days) + Darzalex faspro (daratumumab and hyaluronidase) once a month with last dose 1 week ago presented to [facility] with complaints of fever. Patient reports she has been having fever on and off for the past week ranging up to 101 Fahrenheit at home. She denies any cough dyspnea chest pain palpitations or sputum production.? She reports mild pain? in the right lower quadrant which is new over the past week.? Also has 3-4 episodes of diarrhea which appears to be more chronic and per patient appears related to magnesium supplements.? No nausea or diarrhea.? No blood in stools.? Denies any complains of dysuria.? No rashes anywhere on body.? No recent sick contacts. Past medical history is notable for multiple myeloma, congestive heart failure, cardiomyopathy which was precipitated by induction chemotherapy 1 year ago.? At the time of initial diagnosis her EF was 30%, she has remained on Entresto for about a year, most recent EF was 50% per verbal report.? 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 Denies any joint pain or arthralgias at this time.? No odynophagia sore throat o r URI symptoms. Labs today are notable for neutropenia, thrombocytopenia, and electrolyte disturbances.? Patient denies any past history of febrile neutropenia.? She normally does not need to take Neupogen after her chemo.? She is on Eliquis 2.5 mg twice daily which has recently been discontinued. Patient admitted hospital further evaluation and management. Started on broad- spectrum antibiotics. During hospitalization she remained hemodynamically stable. Her blood cultures remained negative, stool studies so far have been negative for C. difficile and bacterial panel. Respiratory viral panel and tick panel has been sent out and is pending. After result discussed with oncologist patient received 1 dose of Neupogen. Patient is not neutropenic anymore and has been afebrile for last 24 hours. As her blood cultures have been negative, patient is not neutropenic anymore and has been afebrile for last 24 hours it was decided to discharge patient on oral antibiotics for next 5 days. Patient is advised to recheck her CBC within next 3 days and has an appointment set up with her outpatient oncologist within next 1 week. Her hospital stay was complicated by borderline low blood pressures. Which was treated by holding Entresto along with decreasing the home dose of metoprolol. Patient underwent echocardiogram which showed a normal EF with grade 1 diastolic dysfunction. She has been discharged in hemodynamically stable condition on oral Augmentin and Levaquin for next 5 days. She is to hold off from taking Entresto for next 2 weeks. She is to check her blood pressure daily and maintain a blood pressure diary and follow-up with her primary care provider within next 2 weeks for further adjustment of antihypertensives. Patient has been informed if her systolic blood pressures are more than 130 mmHg with heart rate of more than 100 she can go back to her home dose of metoprolol whereas if heart rate is less than 100 and systolic blood pressures are more than 130s she can start on half a dose of Entresto. Physical Exam Narrative: General: No acute distress, AO x3 HEENT: PERRLA, pupils bilaterally equal and reactive Chest: Normal vesicular breath sounds, no added sounds, equal good air entry bilaterally CVS: S1-S2 regular, no murmurs, no tachycardia, no gallops, no rubs Abdomen: Soft, mild tenderness in right lower quadrant , no organomegaly, bowel sounds present Neuro: No focal deficits, no facial deformity, AO x3, power 5/5 in all limbs Discharge Data Studies Completed and Pending Completed Studies During Hospitalization Category Date Time Status CT chest abdomen pelvis [CT chest abd pel w con*] Cat Scan 12/12/21 07:52 Completed Routine CXRP [XR chest 1V portable [id number]] Routine Exams 12/12/21 01:41 Completed CV. echo complete* [id number] Routine Ultrasound 12/11/21 20:14 Completed Pending at discharge Category Date Time Status Blood Culture Stat Lab 12/11/21 20:12 Results Complete Blood Count w/Auto AM LABS Lab 12/15/21 04:00 Ordered Comprehensive Metabolic Panel AM LABS Lab 12/15/21 04:00 Ordered Enteric Parasite Panel by PCR Routine Lab 12/13/21 10:19 Received Respiratory Viral Panel PCR Stat Lab 12/11/21 21:40 Received Tick Panel Routine Lab 12/11/21 20:00 Results Radiology Impressions Chest X-Ray 12/12/21 01:41 IMPRESSION: No AP view chest radiographic evidence of acute cardiopulmonary disease. Chest/Abdomen/Pelvis CT 12/12/21 07:52 IMPRESSION: 1. No evidence of drainable abscess or fluid collection to account for neutropenic fever. 2. Lungs are well aerated. No acute pulmonary infiltrates. 3. No focal pneumonia or pleural fluid. 4. Mild hepatomegaly and splenomegaly. Diffuse fatty filtration liver. 5. Previous umbilical and RIGHT periumbilical hernia repair. Incidental tiny fat containing hernias but no herniated bowel. 6. Retroverted and retroflexed uterus with heterogeneous enhancing fundal mass presumably fibroid measuring 4.8 x 4.1 cm. This impinges the adjacent sigmoid colon. This can be further evaluated with ultrasound. 7. Multiple innumerable tiny lytic lesions throughout the visualized bony structures more prominent in the bony pelvis and sacrum extending into the proximal femurs and femoral heads compatible with history of multiple myeloma. 8. Thoracic kyphosis with chronic compression fractures T5 and T6 with vertebra plana configuration at T5 and prior vertebroplasty changes at T6. Microbiology 12/13/21 10:19 Stool - Stool Aspirate Enteric Pathogens (PCR) - Final 12/13/21 10:19 Stool - Stool Aspirate C.difficile Toxin B Gene (PCR) - Final 12/11/21 20:12 Blood Blood Culture - Preliminary NEGATIVE TO DATE 12/11/21 20:00 Blood Blood Culture - Preliminary NEGATIVE TO DATE 12/11/21 21:40 Nose MRSA Culture - Final 12/11/21 18:18 Urine Kidney Bacterial Antigens - Final 12/11/21 21:40 Urine,Voided Legionella Urinary Antigen - Final Laboratory Results WBC 1.3 10^3/uL (4.0-10.0) L 12/14/21 04:55 RBC 2.74 10^6/uL (4.1-5.3) L 12/14/21 04:55 Hgb 8.7 g/dL (11.5-15.3) L 12/14/21 04:55 Hct 25.5 % (37.0-47.0) L 12/14/21 04:55 MCV 93.1 fl (81-99) 12/14/21 04:55 MCH 31.8 pg (28.0-34.0) 12/14/21 04:55 MCHC 34.1 g/dL (30.0-36.0) 12/14/21 04:55 RDW 14.0 % (12.1-15.1) 12/14/21 04:55 Plt Count 29 10^3/cmm (130-400) L 12/14/21 04:55 MPV 13.6 fL (7.4-10.4) H 12/14/21 04:55 Neut % (Auto) 82.9 % 12/14/21 04:55 Lymph % (Auto) 7.5 % 12/14/21 04:55 [place] % (Auto) 6.7 % 12/14/21 04:55 Eos % (Auto) 1.5 % 12/14/21 04:55 Baso % (Auto) 0.7 % 12/14/21 04:55 Neut # (Auto) 1.11 10^3/uL (1.8-7.7) L 12/14/21 04:55 Lymph # (Auto) 0.1 10^3/uL (0.8-4.8) L 12/14/21 04:55 [place] # (Auto) 0.1 10^3/uL (0.2-0.9) L 12/14/21 04:55 Eos # (Auto) 0.0 10^3/uL (0.0-0.8) 12/14/21 04:55 Baso # (Auto) 0.0 10^3/uL (0.0-0.1) 12/14/21 04:55 Nucleated RBC % (auto) 0 % 12/14/21 04:55 Total Counted 100 (0-100) 12/11/21 20:00 Atypical Lymphs % 16.0 % (0-5) H 12/11/21 20:00 Absolute Neutrophils 0.7 10^3/cmm (1.4-6.5) L* 12/11/21 20:00 Segmented Neutrophils 73 % 12/11/21 20:00 Abs Segm Neuts (Man) 0.7 10/cmm (1.6-7.1) L 12/11/21 20:00 Band Neutrophils 1.0 % 12/11/21 20:00 Abs Band Neuts (Man) 0.0 10^3/cmm (0.0-1.2) 12/11/21 20:00 Absolute Lymphocytes 0.2 10^3/cmm (1.2-3.4) L 12/11/21 20:00 Lymphocytes (Manual) 6 % 12/11/21 20:00 Monocytes (Manual) 2.0 % 12/11/21 20:00 Absolute Monocytes 0.0 10^3/cmm (0.1-0.6) L 12/11/21 20:00 Eosinophils (Manual) 2 % 12/11/21 20:00 Absolute Eosinophils 0.0 10^3/cmm (0.0-0.7) 12/11/21 20:00 Basophils (Manual) 0.0 % 12/11/21 20:00 Absolute Basophils 0.0 10^3/cmm (0.0-0.2) 12/11/21 20:00 Nucleated RBCs # 0.0 /100WBC 12/14/21 04:55 Platelet Estimate Decreased (Normal) L 12/11/21 20:00 Sodium 141 mmol/L (136-145) 12/14/21 04:55 Potassium 3.7 mmol/L (3.5-5.1) 12/14/21 04:55 Chloride 111 mmol/L (98-107) H 12/14/21 04:55 Carbon Dioxide 21 mmol/L (22-29) L 12/14/21 04:55 Anion Gap 12.7 (5-19) 12/14/21 04:55 BUN 11 mg/dL (8-23) 12/14/21 04:55 Creatinine 0.8 mg/dL (0.5-0.9) 12/14/21 04:55 GFR Calculation 72.7 mL/min (90-130) L 12/14/21 04:55 Glucose 115 mg/dL (65-115) 12/14/21 04:55 POC Glucose 126 mg/dL (70-110) H 12/14/21 10:52 Estimat Average Glucose 137 12/12/21 02:21 Hemoglobin A1c 6.4 % (4.0-6.0) H 12/12/21 02:21 Calculated Osmolality 292 mOsm/kg (285-295) 12/14/21 04:55 Lactic Acid 1.1 mmol/L (0.5-2.2) 12/11/21 20:00 Calcium 7.3 mg/dL (8.5-10.5) L 12/14/21 04:55 Phosphorus 3.3 mg/dL (2.5-4.5) 12/12/21 02:21 Magnesium 1.8 mg/dL (1.7-2.3) 12/11/21 20:00 Iron 26 ug/dL (37-145) L 12/11/21 20:00 TIBC 186 mcg/dl 12/11/21 20:00 % Saturation 13.9 % (20-50) L 12/11/21 20:00 Unsat Iron Binding 160 ug/dL (112-347) 12/11/21 20:00 Total Bilirubin 0.3 mg/dL (0.15-1.2) 12/14/21 04:55 AST 35 U/L (0-32) H 12/14/21 04:55 ALT 42 U/L (0-33) H 12/14/21 04:55 Alkaline Phosphatase 74 IU/L (35-105) 12/14/21 04:55 NT-Pro-B Natriuret Pep 242 pg/mL (0-125) H 12/11/21 20:00 Total Protein 4.9 g/dL (6.6-8.7) L 12/14/21 04:55 Albumin 2.8 g/dL (3.5-5.2) L 12/14/21 04:55 Globulin 2.1 g/dL (1.3-4.6) 12/14/21 04:55 Triglycerides 324 mg/dL (0-150) H 12/12/21 02:21 Cholesterol 133 mg/dL (0-200) 12/12/21 02:21 LDL Cholesterol, Calc 47 mg/dL (50-129) L 12/12/21 02:21 Total VLDL Cholesterol 65 mg/dL (0-30) H 12/12/21 02:21 HDL Cholesterol 21 mg/dL (60-100) L 12/12/21 02:21 Cholesterol/HDL Ratio 6.33 mg/dL (0.0-4.40) H 12/12/21 02:21 Folate > 20.0 ng/mL (4.8-37.3) 12/11/21 20:00 Procalcitonin 2.59 ng/mL (0-0.5) H 12/11/21 20:00 TSH 0.93 uIU/mL (0.27-4.20) 12/11/21 20:00 Urine Color Yellow (Yellow) 12/11/21 21:40 Urine Appearance Clear (CLEAR) 12/11/21 21:40 Urine pH 5 (5-7) 12/11/21 21:40 Ur Specific [place] 1.015 (1.005-1.030) 12/11/21 21:40 Urine Protein Neg (Negative) 12/11/21 21:40 Urine Glucose (UA) 4+ (Normal) H 12/11/21 21:40 Urine Ketones 1+ (Negative) H 12/11/21 21:40 Urine Blood Neg (Negative) 12/11/21 21:40 Urine Nitrate Negative (Negative) 12/11/21 21:40 Urine Bilirubin Neg (Negative) 12/11/21 21:40 Urine Urobilinogen Norm mg/dL (Negative) 12/11/21 21:40 Ur Leukocyte Esterase Negative (Negative) 12/11/21 21:40 Lyme Ab (Western Blot) <0.90 index 12/11/21 20:00 Coronavirus 229E (PCR) Cancelled 12/11/21 21:40 Hepatitis A IgM Ab Non-reactive (Nonreactive) 12/12/21 02:21 Hep Bs Antigen Non-reactive (Nonreactive) 12/12/21 02:21 Hep Bs Antibody 418.6 (11.5-1000) 12/12/21 02:21 Hep B Core Total Ab Equivocal (Nonreactive) A* 12/12/21 02:21 Hepatitis C Antibody Non-reactive (Nonreactive) 12/12/21 02:21 SARS-CoV-2 (PCR) Cancelled 12/11/21 21:40 SARS-CoV-2 Ag (Rapid) Negative (Negative) 12/11/21 21:40 Vitals Last Vital Signs Temp 98.5 F 12/14/21 08:00 Pulse 98 12/14/21 09:58 Resp 18 12/14/21 09:58 BP 113/68 12/14/21 08:00 Pulse Ox 95 12/14/21 09:58 Discharge Plan Discharge Patient Disposition: Home Condition: Stable Prescriptions: New levofloxacin 500 mg tablet 500 mg PO Q24H 5 Days Qty: 5 0RF amoxicillin-pot clavulanate [Augmentin] 500-125 mg tablet 1 tab PO Q12H Qty: 10 0RF Continued acyclovir 400 mg tablet 400 mg PO BID 0RF Trulicity 0.75 mg/0.5 mL pen injector See Rx Instructions .ROUTE .COMPLEX 0RF Rx Instructions: 0.5 mg subcutaneously weekly on Fridays hydrocodone-acetaminophen 5-325 mg tablet 1 tab PO PRN PRN (Reason: Pain) 0RF coQ10 (ubiquinol) 100 mg Capsule 100 mg PO DAILY 0RF allopurinol 100 mg Tablet 100 mg PO BEDTIME 0RF gabapentin 100 mg Capsule 100 mg PO BEDTIME 0RF metformin 750 mg Tablet Extended Release 24 Hr 750 mg PO BID 0RF dapagliflozin 10 mg Tablet 10 mg PO QAM 0RF Flexeril 10 mg Tablet 30 mg PO BEDTIME 0RF Changed metoprolol tartrate 50 mg Tablet 25 mg PO BEDTIME Qty: 0 0RF Held Entresto 97-103 mg Tablet 1 tab PO BID 0RF Hold Instructions: Resume on 12/28/21. Discharge Orders: Discharge Order (Routine); Ordered 12/14/21 Ordered By: Danny Johns Referrals: Lilia Childers MD [Primary Care Provider] - 2 weeks Discharge Diet: Cardiac and Diabetic Discharge Activity: Resume usual activity and Increase activity as tolerated Patient Instructions: Opioid Safety Activity Restrictions/Additional Instructions: Please follow-up with your primary care provider within next 2 weeks. Please repeat CBC within next 3 to 4 days. Take Augmentin and Levaquin which are the antibiotics for next 5 days. Entresto has been withheld for next 2 weeks. Dose of metoprolol has been decreased to 25 mg daily. She is to check her blood pressure daily and maintain a blood pressure diary and follow-up with her primary care provider within next 2 weeks for further adjustment of antihypertensives. Patient has been informed if her systolic blood pressures are more than 130 mmHg with heart rate of more than 100 she can go back to her home dose of metoprolol whereas if heart rate is less than 100 and systolic blood pressures are more than 130s she can start on half a dose of Entresto. Discharge Attestations Time Spent in Discharge Care*: greater than 30 min Specific Discharge Activities: educating patient, discussing with pcp/other providers, discussing with major case detective/social workers/dc planners, documenting/other paperwork and evaluating patient/reviewing data Status at Discharge: Cognitive status at discharge: cognitively intact , Behavioral status at discharge: cooperative , Functional status at discharge: independent ambulation , Overall status at discharge: patient is progressing back to baseline Quality Metrics Clinical Quality Measures [ No reported AMI, CVA or VTE this stay] Coding Level of Care Code Acute [facility] DC note History Comprehensive Exam Comprehensive Medical Decision Making High Complexity Diagnoses Sepsis A41.9; R65.20 Sepsis type: sepsis due to unspecified organism Sepsis acute organ dysfunction status: with acute organ dysfunction Severe sepsis acute organ dysfunction type: unspecified Severe sepsis shock status: without septic shock Neutropenic fever D70.9; R50.81 Pancytopenia D61.818 Cardiomyopathy I42.9 Type 2 diabetes mellitus E11.9 Multiple myeloma C90.00
[2021-12-14 16:33] LABS: Glucose Point of Care 101 mg/dL (70-110)
--- NOTE | 2021-12-14 17:43 | PC.NURSE ---
Patient resting in bed, OOBTC and to take shower, VSS with low grade temp a few times during shift however has not met criteria to treat. Patient AAOx4, tolerating diet, no new events or needs. Central line dressing changer this shift, room clean and clutter free with call light in reach. WIll report to oncoming nurse at shift change at bedside.
[2021-12-14] MEDS: cyclobenzaprine 10 mg Tablet PO (21:52)
[2021-12-14] MEDS: metoprolol tartrate 25 mg Tablet 12.5 MG PO (21:52)
[2021-12-14] MEDS: allopurinol 100 mg Tablet PO (21:52)
[2021-12-14] MEDS: gabapentin 100 mg Capsule PO (21:52)
[2021-12-14 22:25] LABS: Glucose Point of Care 133 mg/dL (70-110)
[2021-12-15] VITALS (10 sets, daily range): BP systolic 83–136; BP diastolic 52–69; PULSE 71–85; RESP 16–18; TEMP 36.6–37; O2SAT 94–98
[2021-12-15] MEDS: piperacillin-tazobactam 3.375 GM in sodium chloride 0.9% (plus) 50 ML IV ×2 (01:11→08:48)
[2021-12-15] MEDS: sodium chloride 0.9% 1,000 ML 75 ML IV (04:49)
[2021-12-15 06:07] LABS: Basophils % 0.8 %; Eosinophils % 0.8 %; Lymphocytes # 0.1 10^3/uL (0.8-4.8); Lymphocytes % 9.4 %; Mean Corpuscular HGB Conc 33.3 g/dL (30.0-36.0); Mean Corpuscular Hemoglobin 31.4 pg (28.0-34.0); Mean Corpuscular Volume 94.1 fl (81-99); Mean Platelet Volume 12.3 fL (7.4-10.4); Monocytes # 0.1 10^3/uL (0.2-0.9); Monocytes % 8.7 %; Nucleated Red Blood Cells % 0 %; Platelet Count 31 10^3/cmm (130-400); Red Blood Count 2.55 10^6/uL (4.1-5.3); Red Cell Distribution Width 14.1 % (12.1-15.1); White Blood Count 1.3 10^3/uL (4.0-10.0)
[2021-12-15 06:22] LABS: Neutrophils % 80.3 %; Slide Review Slide Review Perform
[2021-12-15 06:31] LABS: Alanine Aminotransferase 30 U/L (0-33); Albumin Level 2.7 g/dL (3.5-5.2); Alkaline Phosphatase 68 IU/L (35-105); Anion Gap 11.4 (5-19); Aspartate Amino Transferase 17 U/L (0-32); Blood Urea Nitrogen 7 mg/dL (8-23); Carbon Dioxide 21 mmol/L (22-29); Chloride 111 mmol/L (98-107); Globulin 2.2 g/dL (1.3-4.6); Glomerular Filtration Rate 101.3 mL/min (90-130); Glucose 103 mg/dL (65-115); Osmolality Calculated 288 mOsm/kg (285-295); Potassium 3.4 mmol/L (3.5-5.1); Sodium 140 mmol/L (136-145); Total Bilirubin 0.3 mg/dL (0.15-1.2); Total Protein 4.9 g/dL (6.6-8.7)
[2021-12-15 06:32] LABS: Glucose Point of Care 100 mg/dL (70-110)
[2021-12-15] MEDS: famotidine 20 mg/2 mL INJ IVP (06:48)
[2021-12-15] MEDS: acyclovir 400 mg Tablet PO (08:47)
[2021-12-15 11:16] LABS: Glucose Point of Care 128 mg/dL (70-110)
--- NOTE | 2021-12-15 12:27 | PM.PN ---
Subjective Subjective: Patient could not go yesterday as she spiked a fever. Patient has remained hemodynamically stable and afebrile. Her blood counts have remained stable. ANC remains normal. Only had 1 spike of fever. Patient is to be safe to be discharged today. Discharge recommendations remain the same. Repeat CBC within next 3 to 4 days. Follow-up with her oncologist within next 1 week. Continue taking Augmentin and Levaquin for next 5 days. Plan was discussed in detail with the patient and she is agreeable. Vitals/I&O/Wt Last Vital Signs Temp 97.9 F 12/15/21 11:33 Pulse 71 12/15/21 11:33 Resp 16 12/15/21 11:33 BP 113/68 12/15/21 11:33 Pulse Ox 98 12/15/21 11:33 12/14/21 12/15/21 12/15/21 22:59 06:59 14:59 Intake Total 290 / 1980 1050 / 3030 240 / 240 Balance 290 / 1979 1050 / 3030 240 / 240 Weight last 48 hrs Weight 85.684 kg Physical Exam Narrative: General: No acute distress, AO x3 HEENT: PERRLA, pupils bilaterally equal and reactive Chest: Normal vesicular breath sounds, no added sounds, equal good air entry bilaterally CVS: S1-S2 regular, no murmurs, no tachycardia, no gallops, no rubs Abdomen: Soft, mild tenderness in right lower quadrant , no organomegaly, bowel sounds present Neuro: No focal deficits, no facial deformity, AO x3, power 5/5 in all limbs Data : 12/15/21 05:40 12/15/21 05:40 Micro: Microbiology 12/13/21 10:19 Parasite Antigen Panel - Final Stool - Stool Aspirate A&P Assessment and plan (1) Sepsis: Present on admission. Ruled in by tachycardia, fever, leukopenia and low blood pressures. Target organ damage?cardiac. Keep mean artery pressure over 65. Normal saline at 75 cc/h. Status: Acute Qualifiers: Sepsis type: sepsis due to unspecified organism Sepsis acute organ dysfunction status: with acute organ dysfunction Severe sepsis acute organ dysfunction type: unspecified Severe sepsis shock status: without septic shock Qualified Code(s): A41.9 - Sepsis, unspecified organism; R65.20 - Severe sepsis without septic shock (2) Neutropenic fever: Most likely secondary to chemotherapy for multiple myeloma. Continue with Zosyn. MRSA negative will discontinue vancomycin. Follow-up blood culture, tick panel, COVID-19 PCR, urine culture, respiratory viral panel. Stool studies sent results awaited. For now we will continue antibiotics for at least 72 hours till blood cultures were monitored or for at least 24 hours of fever free period. Continue with IV hydration with normal saline at 75 cc/h. CT chest and pelvis results appreciated. Case discussed with Dr. Cook from oncology. We will go ahead and give 40 mcg of Neupogen one-time. Patient is agreeable. Continuing home dose of acyclovir at 400 mg twice daily. Patient continues to spike fever will consult ID. Status: Acute (3) Pancytopenia: likely as result of recent daratumumab therapy. Patient will most likely need Neupogen. Will confirm with her outpatient oncologist. Continue to monitor ANC daily for now. If persists will consult ID. Recently taken off eliquis due to thrombocytopenia. Status: Acute (4) Cardiomyopathy: No signs of decompensation. Echocardiogram shows an EF of 55 to 60%, grade 1 diastolic dysfunction, diffuse hypokinesia of septum. Strict input output charting. Status: Acute (5) Type 2 diabetes mellitus: Insulin sliding scale at moderate dose protocol. HbA1c 6.4 Patient is requesting regular diet rather than carb consistent. Status: Acute (6) Multiple myeloma: Follows up with oncology team at [facility] [[email or web address] 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 Currently on chemotherapy with Revlimid daily for 21 days, Darzalex Faspro once a month with last dose 1 week ago. Status: Acute Plan Hypotension: Most likely secondary to possible sepsis. Hold off on Entresto. Decrease dose of metoprolol to 25 mg at bedtime. Keep mean artery pressure over 65 and less than 90 mmHg. Analgesia: Tylenol as needed Glycemic control: Moderate protocol insulin sliding scale Nutrition: Regular diet CODE STATUS: Full code PUD prophylaxis: Protonix DVT prophylaxis: SCDs, hold off on medical prophylaxis given thrombocytopenia Discharge planning: Discharge back home once patient is medically stable wound cultures remain negative for at least 72 hours. Continue care at [facility] with reverse isolation in place. Attestations Medical Necessity Statement*: Plan for discharge today. Time Spent in Patient Care: Greater than 35 minutes Coding Level of Care Code Acute Surveillance Camera Technician for Chg Fwd Diagnoses Sepsis A41.9; R65.20 Sepsis type: sepsis due to unspecified organism Sepsis acute organ dysfunction status: with acute organ dysfunction Severe sepsis acute organ dysfunction type: unspecified Severe sepsis shock status: without septic shock Neutropenic fever D70.9; R50.81 Pancytopenia D61.818 Cardiomyopathy I42.9 Type 2 diabetes mellitus E11.9 Multiple myeloma C90.00
[2021-12-15 16:22] LABS: Adenovirus Not Detected (Not Detected); Human Metapneumovirus Not Detected (Not Detected); Human Parainflu Virus 1 Not Detected (Not Detected); Human Parainflu Virus 2 Not Detected (Not Detected); Human Parainflu Virus 3 Not Detected (Not Detected); Human Rsv A Not Detected (Not Detected); Influenza A Not Detected (Not Detected); Influenza B Not Detected (Not Detected); Rhinovirus/Enterovirus Not Detected (Not Detected)
[2021-12-19 18:39] LABS: RMSF IGG NOT DETECTED; RMSF IGM NOT DETECTED
[2021-12-20 22:14] LABS: E. Chaffeensis AB IGG <1:64; E. Chaffeensis AB IGM <1:20
== END 2021-12-15 14:05 | disposition home or self-care (01) | DRG 872 ==
PROVIDERS: Student in an Organized Health Care Education/Training Program; Admitting Provider Student in an Organized Health Care Education/Training Program; PCP Family Medicine; Visit Provider Student in an Organized Health Care Education/Training Program
DX: A41.9 Sepsis, unspecified organism (principal); C90.00 Multiple myeloma not having achieved remission; Z94.84 Stem cells transplant status; I50.22 Chronic systolic (congestive) heart failure; I42.9 Cardiomyopathy, unspecified; D84.821 Immunodeficiency due to drugs; R65.20 Severe sepsis without septic shock; D70.1 Agranulocytosis secondary to cancer chemotherapy; T45.1X5A Adverse effect of antineoplastic and immunosuppressive drugs, initial encounter; R50.81 Fever presenting with conditions classified elsewhere; Z79.899 Other long term (current) drug therapy; I11.0 Hypertensive heart disease with heart failure; E11.9 Type 2 diabetes mellitus without complications; I95.9 Hypotension, unspecified; Z79.84 Long term (current) use of oral hypoglycemic drugs; Z79.4 Long term (current) use of insulin; Z79.891 Long term (current) use of opiate analgesic
CPT/HCPCS: 36415; 36416; 36591; 71045; 71260; 74177; 80053; 80061; 81003; 82746; 82962; 83036; 83540; 83550; 83605; 83735; 83880; 84100; 84145; 84443; 85007; 85025; 86403; 86618; 86666; 86705; 86706; 86709; 86757; 86803; 87040; 87340; 87426; 87449; 87493; 87506; 87633; 87641; 93005; 93306; 94664; 96372; J1642; J1815; J2543; J3370; J3490; J7030; J7050; J8499; Q5101; Q9967